=== PATIENT | male | born 1975 | race Native Hawaiian/Other Pacific Islander ===

== ENCOUNTER 2017-06-29 13:20 | Emergency (ER) | payer OTHER ==
[~2017-06-29] VITALS: Ht 188 cm; Wt 115.7 kg
== END 2017-06-29 13:39 | disposition home or self-care (01) ==
LOC: ED 13:20
DX: Z48.02 Encounter for removal of sutures (principal)
CPT/HCPCS: 99281

== ENCOUNTER 2020-08-13 11:37 | Outpatient (CLI) | payer OTHER | END 2020-08-13 19:23 | disposition home or self-care (01) | LOC: US 11:37 | PROVIDERS: ATTEND Internal Medicine | DX: R94.5 Abnormal results of liver function studies (principal) ==